=== PATIENT | female | born 1940 | race Caucasian/White ===

== ENCOUNTER → 2024-12-17 07:13 | Outpatient (CLI) | payer OTHER ==
[2024-12-17 07:56] LABS: BASO % 1.0 % (0.1-1.2); EOS # 0.64 (0.04-0.54); EOS % 8.1 % (0.7-7.0); LYMPH # 2.85 (1.18-3.74); LYMPH % 35.9 % (19.3-53.1); MEAN PLATELET VOLUME 9.90 fl (9.4-12.4); MONO # 0.59 (0.24-0.82); MONO % 7.4 % (4.7-12.5); NEUT # 3.75 (1.56-6.13); NEUT % 47.2 % (34.0-71.1); RED CELL DISTRIBUTION WIDTH 13.3 % (11.6-14.4)
[2024-12-17 08:28] LABS: URINE APPEARANCE Clear; URINE BILIRRUBIN Negative (NEGATIVE); URINE BLOOD Negative; URINE COLOR Yellow; URINE GLUCOSE Negative (NEGATIVE); URINE KETONE Negative (NEGATIVE); URINE LEUKOCYTE Trace; URINE NITRATE Negative; URINE PROTEIN Negative (NEGATIVE); URINE UROBILINOGEN 0.2 E.U./dl
[2024-12-17 08:31] LABS: INR 0.96
[2024-12-17 08:32] LABS: URINE BACTERIA 25.2 uL (0.0-1933); URINE EPITHELIAL CELLS 3.0 uL (0.0-38.8); URINE RBC 6.3 uL (0.0-20.8); URINE WBC 9.2 uL (0.0-23.2)
[2024-12-17 08:39] LABS: URINE CAST 0.14 uL (0.0-1.40)
[2024-12-17 08:59] LABS: ALT/SGPT 21.0 U/L (12-78); AST/SGOT 13.0 U/L (15-37); BILIRUBIN TOTAL 0.4 mg/dL (0.3-1.2); BUN CREA RATIO 26.0 (7.0-25.0); CREATININE SERUM 0.81 mg/dL (0.55-1.02); GFR 67.2; GLOBULINA 2.9 G/DL (2.4-3.5); GLUCOSE FASTING 105.0 mg/dL (65-100); OSMOLALITY SERUM 292.0 MOSM/KG (275-295)
== END | disposition home or self-care (01) ==
LOC: LAB 07:13
PROVIDERS: ATTEND Surgery
DX: D37.4 Neoplasm of uncertain behavior of colon (principal); D12.0 Benign neoplasm of cecum

== ENCOUNTER 2024-12-23 09:45 | Inpatient (IN) | payer OTHER ==
[~2024-12-23] VITALS: Ht 162.6 cm; Wt 72.6 kg
[2024-12-23] MEDS ORDERED: LEVOTHYROXINE25 MCG PO (14:36)
[2024-12-23] MEDS ORDERED: SERTRALINE HCL100 MG PO (14:37)
[2024-12-23] MEDS ORDERED: CLONAZEPAM0.25 MG PO (14:37)
[2024-12-23] MEDS ORDERED: DILTIAZEM 24HR240 MG PO (14:37)
[2024-12-23] MEDS ORDERED: COZAAR50 MG PO (14:38)
[2024-12-23] MEDS ORDERED: MONTELUKAST SOD10 MG PO (14:39)
[2024-12-23] MEDS ORDERED: XOPENEX HFA15 GM IH (14:39)
[2024-12-23] MEDS ORDERED: SIMVASTATIN10 MG PO (14:39)
[2024-12-23] MEDS ORDERED: OLANZAPINE2.5 MG PO (14:40)
[2024-12-30] MEDS ORDERED: METRONIDAZOLE/SODIUM CHLORIDE 500 MG/100 ML PIGGYBACK IV ONE (06:55)
[2024-12-30] MEDS ORDERED: levoFLOXacin IN DEXTROSE 5 % 5 MG/ML PIGGYBAG IV ONE (06:56)
[2024-12-30] MEDS ORDERED: BUPIVACAINE HCL/MPF 0.5% 30ML VIAL ONE (07:39)
[2024-12-30] MEDS ORDERED: LIDOCAINE HCL 1%/EPINEPHRINE 20ML VIAL IJ ONE (07:40)
[2024-12-30] MEDS ORDERED: SUGAMMADEX SODIUM 200 MG/2 ML VIAL IV ONE (08:56)
[2024-12-30] MEDS ORDERED: 0.9 % SODIUM CHLORIDE 1,000 ML IV SCH (09:30)
[2024-12-30] MEDS ORDERED: ONDANSETRON HCL 2 MG/ML VIAL IV PRN (09:30)
[2024-12-30] MEDS ORDERED: DEXTROSE 50 % IN WATER 0.5 G/ML DISP.SYRIN IV PRN (09:30)
[2024-12-30] MEDS ORDERED: OxyCODONE HCL 5 MG TABLET (ROXICODONE) PO PRN (09:30)
[2024-12-30] MEDS ORDERED: MORPHINE SULFATE 4 MG/ML VIAL IV PRN (09:30)
[2024-12-30] MEDS ORDERED: ENALAPRILAT DIHYDRATE 1.25 MG/ML VIAL IV ONE (10:00)
[2024-12-30 11:52] LABS: BASO % 0.5 % (0.1-1.2); EOS # 0.13 (0.04-0.54); EOS % 1.3 % (0.7-7.0); LYMPH # 0.78 (1.18-3.74); LYMPH % 7.8 % (19.3-53.1); MEAN PLATELET VOLUME 10.90 fl (9.4-12.4); MONO # 0.34 (0.24-0.82); MONO % 3.4 % (4.7-12.5); NEUT # 8.65 (1.56-6.13); NEUT % 86.7 % (34.0-71.1); RED CELL DISTRIBUTION WIDTH 13.7 % (11.6-14.4)
[2024-12-30 12:04] VITALS: BP 145/76; O2SAT 94
[2024-12-30 12:22] LABS: BUN CREA RATIO 21.0 (7.0-25.0); CREATININE SERUM 0.63 mg/dL (0.55-1.02); GFR 89.6; GLUCOSE FASTING 108.0 mg/dL (65-100); OSMOLALITY SERUM 287.0 MOSM/KG (275-295)
[2024-12-30] MEDS ORDERED: ENALAPRILAT DIHYDRATE 1.25 MG/ML VIAL IV PRN (13:00)
[2024-12-30] MEDS ORDERED: HYOSCYAMINE SULFATE 0.125 MG TAB.SUBL SL SCH (13:00)
[2024-12-30] MEDS ORDERED: ACETAMINOPHEN 500 MG GEL..CAP PO SCH (14:00)
[2024-12-30] MEDS ORDERED: LEVALBUTEROL HCL 0.63 MG/3 ML SOLUTION IH SCH (14:00)
[2024-12-30] MEDS ORDERED: GABAPENTIN 300 MG CAPSULE PO SCH (17:00)
[2024-12-30] MEDS ORDERED: METRONIDAZOLE/SODIUM CHLORIDE 500 MG/100 ML PIGGYBACK IV SCH (17:00)
[2024-12-30 17:18] VITALS: BP 159/84; O2SAT 95
[2024-12-30] MEDS ORDERED: LOSARTAN POTASSIUM 50 MG TABLET PO SCH (21:00)
[2024-12-30] MEDS ORDERED: CLONAZEPAM 0.5 MG TABLET PO SCH (21:00)
[2024-12-30] MEDS ORDERED: PATIENTS OWN MEDICATION (MEDICAMENTO EN PISO) PO SCH (21:00)
[2024-12-30] MEDS ORDERED: CELECOXIB 200 MG CAPSULE PO SCH (21:00)
[2024-12-30] MEDS ORDERED: DILTIAZEM HCL 120 MG CAP.SR.24H PO SCH (21:00)
[2024-12-30] MEDS ORDERED: MONTELUKAST SODIUM 10 MG TABLET PO SCH (21:00)
[2024-12-30] MEDS ORDERED: FAMOTIDINE/PF 20 MG/2 ML VIAL IV PUSH SCH (21:00)
[2024-12-31 02:03] VITALS: BP 132/76; O2SAT 92
[2024-12-31] MEDS ORDERED: PATIENTS OWN MEDICATION (MEDICAMENTO EN PISO) PO SCH (06:00)
[2024-12-31 07:00] LABS: BASO % 0.6 % (0.1-1.2); EOS # 0.25 (0.04-0.54); EOS % 3.0 % (0.7-7.0); LYMPH # 1.85 (1.18-3.74); LYMPH % 22.1 % (19.3-53.1); MEAN PLATELET VOLUME 11.00 fl (9.4-12.4); MONO # 0.69 (0.24-0.82); MONO % 8.2 % (4.7-12.5); NEUT # 5.51 (1.56-6.13); NEUT % 65.6 % (34.0-71.1); RED CELL DISTRIBUTION WIDTH 13.6 % (11.6-14.4)
[2024-12-31 07:16] LABS: BUN CREA RATIO 16.0 (7.0-25.0); CREATININE SERUM 0.76 mg/dL (0.55-1.02); GFR 72.16; GLUCOSE FASTING 94.0 mg/dL (65-100); OSMOLALITY SERUM 286.0 MOSM/KG (275-295)
[2024-12-31 08:00] VITALS: BP 145/68; O2SAT 97
[2024-12-31] MEDS ORDERED: SERTRALINE HCL 100 MG TABLET PO SCH (09:00)
[2024-12-31] MEDS ORDERED: DILTIAZEM HCL 240 MG CAP.SR.24H PO SCH (09:00)
[2024-12-31 16:00] VITALS: BP 127/64; O2SAT 99
[2024-12-31] MEDS ORDERED: SIMVASTATIN 10 MG TABLET PO SCH (17:00)
[2024-12-31] MEDS ORDERED: AMINO ACIDS 1 EACH TABLET PO SCH (17:00)
[2024-12-31] MEDS ORDERED: ENOXAPARIN SODIUM 40 MG/0.4 ML SYRINGE SUBCUTANEO SCH (17:00)
[2024-12-31 23:44] VITALS: BP 139/68; O2SAT 95
[2025-01-01 06:23] LABS: BASO % 0.5 % (0.1-1.2); EOS # 0.54 (0.04-0.54); EOS % 7.2 % (0.7-7.0); LYMPH # 1.20 (1.18-3.74); LYMPH % 16.1 % (19.3-53.1); MEAN PLATELET VOLUME 10.70 fl (9.4-12.4); MONO # 0.48 (0.24-0.82); MONO % 6.4 % (4.7-12.5); NEUT # 5.17 (1.56-6.13); NEUT % 69.5 % (34.0-71.1); RED CELL DISTRIBUTION WIDTH 13.8 % (11.6-14.4)
[2025-01-01 06:59] LABS: BUN CREA RATIO 17.0 (7.0-25.0); CREATININE SERUM 0.58 mg/dL (0.55-1.02); GFR 98.57; GLUCOSE FASTING 96.0 mg/dL (65-100); OSMOLALITY SERUM 293.0 MOSM/KG (275-295)
[2025-01-01 08:00] VITALS: BP 128/73; O2SAT 95
[2025-01-01] MEDS ORDERED: SODIUM CHLORIDE 0.45 % 1,000 ML IV SCH (08:30)
[2025-01-01] MEDS ORDERED: POTASSIUM PHOS,M-BASIC-D-BASIC 3 MM/ML VIAL IV NR (08:30)
[2025-01-01] MEDS ORDERED: ENOXAPARIN SODIUM 40 MG/0.4 ML SYRINGE SUBCUTANEO SCH (09:00)
[2025-01-01] MEDS ORDERED: PAIN RELIEVER500 M2 PO (10:31)
[2025-01-01] MEDS ORDERED: HYOSCYAMINE0.125 M1 SL (10:31)
[2025-01-01] MEDS ORDERED: GABAPENTIN300 MG PO (10:31)
[2025-01-01] MEDS ORDERED: NEURONTIN300 MG PO (10:36)
[2025-01-01] MEDS ORDERED: ACETAMINOPHEN650 MG PO (10:36)
[2025-01-01] MEDS ORDERED: NAPH,MB-DB/K PH,MBDB 1 PKT PACKET PO NR (10:45)
== END 2025-01-01 14:37 | disposition home or self-care (01) | DRG 331 ==
LOC: O/R 12-30 06:00 → SURG 12-30 09:45 → SURH 12-30 11:16 → SURG 12-30 15:15 → SURH 01-01 14:37
PROVIDERS: Internal Medicine Geriatric Medicine; ADMIT Surgery; ATTEND Surgery
PROC: 07BB4ZZ Excision of Mesenteric Lymphatic, Percutaneous Endoscopic Approach (ICD-10-PCS; 2024-12-30)
PROC: 3E0F7GC Introduction of Other Therapeutic Substance into Respiratory Tract, Via Natural or Artificial Opening (ICD-10-PCS; 2024-12-30)
PROC: 0DTF4ZZ Resection of Right Large Intestine, Percutaneous Endoscopic Approach (ICD-10-PCS; principal; 2024-12-30 15:15)
DX: K63.5 Polyp of colon (principal)